=== PATIENT | female | born 1945 | race Caucasian/White ===

== ENCOUNTER 2025-03-20 09:00 | Emergency (ER) | payer BC, MEDICAID ==
[~2025-03-20] VITALS: Ht 152.4 cm; Wt 80.3 kg
[2025-03-20] MEDS ORDERED: LIDOCAINE 5% (PATCH) 1 EA PATCH TP ONE (09:53)
[2025-03-20] MEDS ORDERED: ACETAMINOPHEN ES 500 MG TABLET ONE (09:53)
[2025-03-20] MEDS: LIDOCAINE 5% (PATCH) 1 EA PATCH TP SCH (10:00)
[2025-03-20] MEDS: ACETAMINOPHEN ES 500 MG TABLET PO ONE (10:00)
[2025-03-20] MEDS ORDERED: ACET-2030 PO (11:13)
[2025-03-20] MEDS ORDERED: LIDO30AD10 TP (11:13)
[2025-03-20 13:29] VITALS: BP 153/88; TEMP 98.7; O2SAT 99
== END 2025-03-20 13:29 ==
LOC: ER 09:16
DX: M25.551 Pain in right hip (principal); M16.12 Unilateral primary osteoarthritis, left hip; E03.9 Hypothyroidism, unspecified; F03.90 Unspecified dementia, unspecified severity, without behavioral disturbance, psychotic disturbance, mood disturbance, and anxiety; G47.33 Obstructive sleep apnea (adult) (pediatric); I12.9 Hypertensive chronic kidney disease with stage 1 through stage 4 chronic kidney disease, or unspecified chronic kidney disease; M19.90 Unspecified osteoarthritis, unspecified site; N18.9 Chronic kidney disease, unspecified; Z88.1 Allergy status to other antibiotic agents
CPT/HCPCS: 73502; 73564-TC

== ENCOUNTER 2025-03-27 09:16 | Emergency (ER) | payer BC, MEDICAID ==
[~2025-03-27] VITALS: Ht 157.5 cm; Wt 86.2 kg
[~2025-03-27 09:16] MED LIST: ACET-2030 PO; LIDO30AD10 TP
[2025-03-27] MEDS ORDERED: ACETAMINOPHEN ES 500 MG TABLET ONE (10:06)
[2025-03-27] MEDS ORDERED: LIDOCAINE 5% (PATCH) 1 EA PATCH TP ONE (10:06)
[2025-03-27] MEDS: ACETAMINOPHEN 325 MG TABLET PO ONE (10:12)
[2025-03-27] MEDS: LIDOCAINE 5% (PATCH) 1 EA PATCH TP STA (10:12)
[2025-03-27] MEDS ORDERED: LIDO1ADH82 TP (10:46)
[2025-03-27] MEDS ORDERED: ACET-73 PO (10:46)
[2025-03-27 13:00] VITALS: BP 141/81; TEMP 98.3; O2SAT 98
== END 2025-03-27 13:31 | disposition home or self-care (01) ==
LOC: ER 09:23
DX: M16.11 Unilateral primary osteoarthritis, right hip (principal); E03.9 Hypothyroidism, unspecified; F03.90 Unspecified dementia, unspecified severity, without behavioral disturbance, psychotic disturbance, mood disturbance, and anxiety; G47.33 Obstructive sleep apnea (adult) (pediatric); I12.9 Hypertensive chronic kidney disease with stage 1 through stage 4 chronic kidney disease, or unspecified chronic kidney disease; M19.90 Unspecified osteoarthritis, unspecified site; N18.9 Chronic kidney disease, unspecified; Z88.1 Allergy status to other antibiotic agents
CPT/HCPCS: 73502; 73560-TC